=== PATIENT | male | born 1985 | race Caucasian/White ===

== ENCOUNTER 2019-11-18 16:54 | Emergency (ER) | payer SELFPAY ==
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
[2019-11-18] MEDS ORDERED: TETANUS & DIPHTHERIA TOX,ADULT 0.5 ML VIAL ONE (17:28)
[2019-11-18] MEDS ORDERED: HYDROMORPHONE HCL 1 MG/ML INJ ONE (17:28)
[2019-11-18 18:17] VITALS: BP 129/83; TEMP 98.2; O2SAT 98
--- OUTSIDE RECORDS SUMMARY | 2019-11-19 05:23 | XMS REPORT | Continuity of Care Document ---
:1985 Author Organization [facility] t Address [address] [place] [address] Care Team Providers Name Role Phone Prudencio MCKEON Attending Clinician Problems This patient has no known problems. Allergies, Adverse Reactions, Alerts This patient has no known allergies or adverse reactions. Medications This patient has no known medications. Procedures This patient has no known procedures. Encounters Start End Encounter Admission Attending Care Care Encounter Source Date/Time Date/Time Type Type Clinicians Facility Department ID 2019-07-22 2019-07-22 Emergency Prudencio [facility] [id number] 07:50:48 11:35:00 Samuel Prince [id number] [place] [id number] [place] [phone] Results This patient has no known results.
== END 2019-11-18 17:33 | disposition home or self-care (01) ==
LOC: ER 16:54
DX: T23.261A Burn of second degree of back of right hand, initial encounter (principal); T31.0 Burns involving less than 10% of body surface; X13.1XXA Other contact with steam and other hot vapors, initial encounter; Y93.9 Activity, unspecified; Y92.009 Unspecified place in unspecified non-institutional (private) residence as the place of occurrence of the external cause; Z23 Encounter for immunization; F17.210 Nicotine dependence, cigarettes, uncomplicated
CPT/HCPCS: 90471; 90714; 96372; 99282; J1170

== ENCOUNTER 2020-03-21 04:58 | Emergency (ER) | payer SELFPAY ==
--- NOTE | 2020-03-21 05:28 | ER ---
Nurse's Notes [facility] Name: Ezequiel Combs Age: 34 yrs Sex: Male : 1985 Arrival Date: 03/21/2020 Time: 04:59 Bed 7 Private MD: Diagnosis: Allergy, unspecified Presentation: 03/21 05:11 Chief complaint: Patient states: RASH STARTED TO SHOW FRIDAY. AND MY LIPS WERE KIND OF rv SENSITIVE, TODAY I WOKE UP WITH HIVES ON MY LIPS AND IT JIMÉNEZ. Coronavirus screen: Client denies travel out of the [place] in the last 14 days. Ebola Screen: No symptoms or risks identified at this time. Onset: The symptoms/episode began/occurred today. Anaphylaxis evaluation, no signs or symptoms of anaphylaxis were noted. Initial Sepsis Screen: Does the patient meet any 2 criteria? No. Patient's initial sepsis screen is negative. Does the patient have a suspected source of infection? No. Patient's initial sepsis screen is negative. Risk Assessment: Do you want to hurt yourself or someone else? Patient reports no desire to harm self or others. 05:11 Method Of Arrival: Ambulatory 05:11 Acuity: EVON 4 rv 05:11 Onset of symptoms was March 21, 2020. rv Triage Assessment: 05:13 General: Appears comfortable, Behavior is calm, cooperative. Pain: Complains of pain in rv mouth Quality of pain is described as burning. EENT: No signs and/or symptoms were reported regarding the EENT system. Neuro: Level of Consciousness is awake, alert, obeys commands, Oriented to person, place, time, situation. Cardiovascular: Patient's skin is warm and dry. Respiratory: Airway is patent Respiratory effort is even, unlabored. Derm: Rash noted that is on back of neck and mouth. Historical: - Allergies: 05:13 No Known Allergies; rv - PMHx: 05:13 None; rv - PSHx: 05:13 None; rv - Immunization history:: Adult Immunizations up to date. - Social history:: Smoking status: Patient reports the use of cigarette tobacco products, smokes one-half pack cigarettes per day. - Family history:: not pertinent. Screenin:14 Abuse screen: Denies threats or abuse. Denies injuries from another. Nutritional rv screening: No deficits noted. Tuberculosis screening: No symptoms or risk factors identified. Fall Risk None identified. Assessment: 05:35 Respiratory: Airway is patent Breath sounds are clear bilaterally. rv Vital Signs: 05:11 BP 141 / 88; Pulse 80; Resp 17; Temp 98.6; Pulse Ox 100% ; Weight 92.99 kg; Height 5 rv ft. 10 in. (177.80 cm); 05:11 Body Mass Index 29.41 (92.99 kg, 177.80 cm) rv ED Course: 04:59 Patient arrived in ED. cf2 05:11 Mohsen Jones, RN is Primary Nurse. rv 05:12 Triage completed. rv 05:13 Arm band placed on right wrist. Patient placed in the treatment room, on a stretcher, rv Patient notified of wait time. 05:14 Patient has correct armband on for positive identification. Pulse ox on. NIBP on. rv 05:14 No provider procedures requiring assistance completed. Patient did not have IV access rv during this emergency room visit. 05:17 Riya Leach MD is Attending Physician. ma2 Administered Medications: 05:34 Drug: Pepcid 20 mg Route: PO; rv 05:34 Follow up: Response: Medication administered at discharge. rv 05:34 Drug: Benadryl 50 mg Route: IM; Site: right deltoid; rv 05:34 Follow up: Response: Medication administered at discharge. rv 05:34 Drug: MethylPREDNISolone Sodium Succinate 125 mg Route: IM; Site: left deltoid; rv 05:34 Follow up: Response: Medication administered at discharge. rv Outcome: 05:28 Discharge ordered by . ma2 05:35 Discharged to home ambulatory. rv 05:35 Condition: good 05:35 Discharge instructions given to patient, Instructed on discharge instructions, follow up and referral plans. medication usage, Demonstrated understanding of instructions, follow-up care, medications, Prescriptions given X 3. 05:35 Patient left the ED. rv Signatures: Riya Leach MD MD ma2 Mohsen Jones, WOO RN rv Dalton Mustafa cf2
--- NOTE | 2020-03-21 05:28 | EDPHYS ---
Physician Documentation [facility] Name: Ezequiel Combs Age: 34 yrs Sex: Male : 1985 Arrival Date: 03/21/2020 Time: 04:59 Bed 7 Private MD: ED Physician Riya Leach HPI: 03/21 05:26 This 34 yrs old Male presents to ER via Ambulatory with complaints of Hives. ma2 05:26 Onset: The symptoms/episode began/occurred gradually, 3 day(s) ago. Severity of ma2 symptoms: At their worst the symptoms were very mild in the emergency department the symptoms are unchanged. The patient has not experienced similar symptoms in the past. Historical: - Allergies: 05:13 No Known Allergies; rv - PMHx: 05:13 None; rv - PSHx: 05:13 None; rv - Immunization history:: Adult Immunizations up to date. - Social history:: Smoking status: Patient reports the use of cigarette tobacco products, smokes one-half pack cigarettes per day. - Family history:: not pertinent. ROS: 05:26 Constitutional: Negative for fever, chills, and weight loss. ma2 05:26 All other systems are negative. Exam: 05:26 Constitutional: This is a well developed, well nourished patient who is awake, alert, ma2 and in no acute distress. ENT: Nares patent. No nasal discharge, no septal abnormalities noted. Tympanic membranes are normal and external auditory canals are clear. Oropharynx with no redness, swelling, or masses, exudates, or evidence of obstruction, uvula midline. Mucous membranes moist. Neck: Trachea midline, no thyromegaly or masses palpated, and no cervical lymphadenopathy. Supple, full range of motion without nuchal rigidity, or vertebral point tenderness. No Meningismus. Chest/axilla: Normal chest wall appearance and motion. Nontender with no deformity. No lesions are appreciated. Cardiovascular: Regular rate and rhythm with a normal S1 and S2. No gallops, murmurs, or rubs. Normal PMI, no JVD. No pulse deficits. Respiratory: Lungs have equal breath sounds bilaterally, clear to auscultation and percussion. No rales, rhonchi or wheezes noted. No increased work of breathing, no retractions or nasal flaring. Abdomen/GI: Soft, non-tender, with normal bowel sounds. No distension or tympany. No guarding or rebound. No evidence of tenderness throughout. Skin: diffuse hives, otherwise Warm, dry with normal turgor. Normal color with no rashes, no lesions, and no evidence of cellulitis. MS/ Extremity: Pulses equal, no cyanosis. Neurovascular intact. Full, normal range of motion. Neuro: Awake and alert, GCS 15, oriented to person, place, time, and situation. Cranial nerves II-XII grossly intact. Motor strength 5/5 in all extremities. Sensory grossly intact. Cerebellar exam normal. Normal gait. Vital Signs: 05:11 BP 141 / 88; Pulse 80; Resp 17; Temp 98.6; Pulse Ox 100% ; Weight 92.99 kg; Height 5 rv ft. 10 in. (177.80 cm); 05:11 Body Mass Index 29.41 (92.99 kg, 177.80 cm) rv MDM: 05:17 Patient medically screened. ma2 05:26 Differential Diagnosis allergic reactions, vs urticaria vs viral illness. Data ma2 reviewed: vital signs, nurses notes. Counseling: I had a detailed discussion with the patient and/or guardian regarding: the historical points, exam findings, and any diagnostic results supporting the discharge/admit diagnosis, the presence of at least one elevated blood pressure reading (>120/80) during this emergency department visit, the need for outpatient follow up. Response to treatment: the patient's symptoms have markedly improved after treatment. Administered Medications: 05:34 Drug: Pepcid 20 mg Route: PO; rv 05:34 Follow up: Response: Medication administered at discharge. rv 05:34 Drug: Benadryl 50 mg Route: IM; Site: right deltoid; rv 05:34 Follow up: Response: Medication administered at discharge. rv 05:34 Drug: MethylPREDNISolone Sodium Succinate 125 mg Route: IM; Site: left deltoid; rv 05:34 Follow up: Response: Medication administered at discharge. rv Disposition: 03/21/20 05:28 Discharged to Home. Impression: Allergy, unspecified. - Condition is Stable. - Discharge Instructions: Allergy Skin Testing. - Prescriptions for Benadryl 25 mg Oral Capsule - take 1 capsule by ORAL route every 6 hours As needed; 30 tablet. Medrol (Preet) 4 mg Oral Tablets, Dose Pack - take 1 tablet by ORAL route as directed - follow package instructions; 1 packet. Pepcid 20 mg Oral Tablet - take 1 tablet by ORAL route once daily for 10 days; 10 tablet. - Medication Reconciliation Form, Thank You Letter, Antibiotic Education, Prescription Opioid Use form. - Follow up: Private Physician; When: Tomorrow; Reason: If symptoms return, Continuance of care. Signatures: Riya Leach MD MD ma2 Mohsen Jones RN RN rv Corrections: (The following items were deleted from the chart) 05:35 05:28 03/21/2020 05:28 Discharged to Home. Impression: Allergy, unspecified. Condition rv is Stable. Forms are Medication Reconciliation Form, Thank You Letter, Antibiotic Education, Prescription Opioid Use. Follow up: Private Physician; When: Tomorrow; Reason: If symptoms return, Continuance of care. ju
[2020-03-21 05:40] VITALS: BP 141/88; TEMP 98.6; O2SAT 100
[2020-03-21] MEDS ORDERED: FAMOTIDINE 20 MG TAB ONE (05:44)
[2020-03-21] MEDS ORDERED: METHYLPREDNISOLONE 125 MG INJ ONE (05:44)
[2020-03-21] MEDS ORDERED: DIPHENHYDRAMINE 50 MG/ML VIAL ONE (05:44)
--- OUTSIDE RECORDS SUMMARY | 2020-03-22 02:44 | XMS REPORT | Continuity of Care Document ---
:[address] [facility] t Address [address] [place] [address] Care Team Providers Name Role Phone Prudencio [...] Facility Department ID 2019-07-22 2019-07-22 Emergency Prudencio [facility] [id number] 07:50:48 11:35:00 Samuel Prince [id number] [place] [id number] [place] [phone] Results This patient has no known results.
== END 2020-03-21 05:35 | disposition home or self-care (01) ==
LOC: ER 04:58
DX: L50.9 Urticaria, unspecified (principal); F17.210 Nicotine dependence, cigarettes, uncomplicated
CPT/HCPCS: 96372; 99283; J1200; J2930

== ENCOUNTER → 2023-02-09 | Emergency (ER) | payer SELFPAY ==
--- OUTSIDE RECORDS SUMMARY | 2023-02-09 00:41 | XMS REPORT | Continuity of Care Document ---
Author Name Unknown Address [address] [facility] [address] [place] [address] [facility] Address [address] [facility] [address] [place] [address] Care Team Providers Care Mine Engineer Name Role Phone PCP, PATIENT DOES NOT HAVE A Primary Care Physic harry Unavailable Samuel Coelho MD Attending Clinician SAMUEL COELHO Attending Clinician Unavailable SAMUEL COELHO Admitting Clinician Unavailable Payers Payer Name Policy Type Policy Number Effective Date Expirati on Date Source Allergies, Adverse Reactions, Alerts Allergy Name Allergy Type Status Severity Reaction(s) Onset Date Inactive Date Treating Clinician Comments Source NO KNOWN ALLERGIE S Drug Class Active [facility] Social History Social Habit Start Date Stop Date Quantity Comments Source Sex Assigned At [facility] Smoking Status Start Date Stop Date Source Unknown if ever smoked [facility] Medications Ordered Medication Name Filled Medication Name Start Date Stop Date Current Medication? Ordering Clinician Indication Dosage Frequency Signature (SIG) Comments Components Source iohexol (OMNIPAQUE 350 BULK-150 mL) injection 120 mL 07-21 15:18: 00 07-21 15:17 :00 No 120mL 120 mL, Intravenou s, ONCE, 1 dose, Olivia 07/22/19 at 1030, Routine [facility] furosemide (LASIX) 20 mg tablet 07-21 00:00: 00 Yes [id number] 20mg Take 1 tablet by mouth daily. [facility] ondansetron 4 mg disintegrat ing tablet 07-21 00:00: 00 Yes [id number] 4mg Take 1 tablet by mouth every 4 (four) hours as needed for Nausea and Vomiting (N/V). [facility] pantoprazol e 40 mg EC tablet 07-21 00:00: 00 Yes [id number] 40mg Take 1 tablet by mouth daily. [facility] doxycycline hyclate 100 mg capsule 07-21 00:00: 00 08-01 04:59 :00 No [id number] 100mg Take 1 capsule by mouth 2 (two) times daily for 10 days. [facility] Vital Signs Vital Name Observation Time Observation Value Comments S ource Systolic blood pressure 2019-07-22 16:00:00 133 mm[Hg] [facility] Diastolic blood pressure 2019-07-22 16:00:00 82 mm[Hg] [facility] Heart rate 2019-07-22 16:00:00 70 /min [facility] Respiratory rate 2019-07-22 16:00:00 21 /min [facility] Oxygen saturation in Arterial blood by Pulse oximetry 2019-07-22 16:00:00 93 /min [facility] Body temperature 2019-07-22 14:04:00 37.61 May [facility] Body height 2019-07-22 12:48:00 180.3 cm [facility] Body weight 2019-07-22 12:48:00 102.74 kg [facility] BMI 2019-07-22 12:48:00 31.59 kg/m2 [facility] Systolic blood pressure 2019-07-22 16:00:00 133 mm[Hg] [facility] Diastolic blood pressure 2019-07-22 16:00:00 82 mm[Hg] [facility] Heart rate 2019-07-22 16:00:00 70 /min [facility] Respiratory rate 2019-07-22 16:00:00 21 /min [facility] Oxygen saturation in Arterial blood by Pulse oximetry 2019-07-22 16:00:00 93 /min [facility] Body temperature 2019-07-22 14:04:00 37.61 May [facility] Body height 2019-07-22 12:48:00 180.3 cm [facility] Body weight 2019-07-22 12:48:00 102.74 kg [facility] BMI 2019-07-22 12:48:00 31.59 kg/m2 [facility] Procedures Procedure Date / Time Performed Performing Clinician Source CT ABDOMEN PELVIS W CONTRAST 2019-07-22 15:25:47 Samuel Coelho [facility] XR ABDOMEN ACUTE SERIES 2019-07-22 13:53:43 Do juan m Coelho [facility] LIPASE 2019-07-22 13:43:00 Samuel Coelho [facility] TROPONIN I 2019-07-22 13:43:00 Samuel Coelho [facility] FREE T4 2019-07-22 13:43:00 Samuel Coelho [facility] THYROID STIMULATING HORMONE 2019-07-22 13:43:00 Samuel Coelho [facility] HEPATIC FUNCTION PANEL (22527) (ALB,T.PRO,BILI T,BU/BC,ALT,AST,ALK PHOS) 2019-07-22 13:43:00 Samuel Coelho [facility] BASIC METABOLIC PANEL (NA, K, CL, CO2, GLUCOSE, BUN, CREATININE, CA) 2019-07-22 13:43:00 Samuel Coelho [facility] CBC WITH DIFFERENTIAL 2019-07-22 13:43:00 Abel Coelho [facility] PROTHROMBIN TIME / INR 2019-07-22 13:43:00 Duong Coelho [facility] ACTIVATED PARTIAL THRMPLAS ARINA 2019-07-22 13:43:00 Samuel Coelho [facility] N-TERMINAL PRO-BNP 2019-07-22 13:43:00 Samuel Coelho [facility] FREE T3 2019-07-22 13:43:00 Samuel Coelho [facility] EKG-12 LEAD 2019-07-22 13:07:09 Samuel Coelho [facility] NOTICE OF PRIVACY PRACTICES 2019-07-22 12:40:41 Doctor Unassigned, [place] [facility] Encounters Start Date/Time End Date/Time Encounter Type Admission Type Attending Clinicians Care Facility Care Department Encounter ID Source 2019-07-22 07:50:48 2019-07-22 11:35:00 Emergency Samuel Coehlo [facility] [id number] [facility] 2019-07-22 07:50:48 2019-07-22 11:35:00 Emergency X SAMUEL COELHO [facility] ERT [id number] [facility] 2019-07-22 07:50:48 2019-07-22 11:35:00 Emergency Samuel Coelho [facility] [id number] Results Test Description Test Time Test Comments Results Result Comments Source CT ABDOMEN PELVIS W CONTRAST 2019-07 15:48:[address] Abdomen and Pelvis with intravenous contrast. CLINICAL HISTORY: Neoplasm, colorectal/gastric. DOSE: Up-to-date CT equipment and radiation dose reduction techniques wereemployed. CTDIvol: 9.68 mGy. DLP: 520 mGy-cm. TECHNIQUE : Contiguous axial imaging from the level of the lung basesthrough the pubic symphysis were performed after the uncomplicatedadministration of Omnipaque contrast material. Coronal and sagittalreconstructions were obtained. Auto mA and/or iterative reconstruction wereused to reduce radiation dose. FINDINGS: ? Lower lungs: Clear. No pleural effusion or pericardial effusion. Shortsliding hiatal hernia noted. Adjacent to the right dorsolateral surface ofthe lower esophagus, 9 mm lymph node is present. Liver, Gallbladder and Spleen: Liver is enlarged, 18.8 cm in length. Spleenmeasures approximately 11 x 5.7 cm. No enhancing lesions visualized in theliver or in the spleen. No calcified gallstones or any evidence of acutecholecystitis. Biliary ducts and the pancreatic duct appear of normal size. Peritoneum: ?No free air or free fluid. No lymphadenopathy. Pancreas and Adrenals: ?Unremarkable pancreas and adrenal glands. Kidneys and Ureters: ?No visible calculi in the renal collecting systems. No hydroureter or hydronephrosis. Vessels: Retroperitoneum: No abnormal fluid or lymphadenopathy. Bowel: No acute findings. Constipation noted with retained fecal materialthroughout large bowel. Small bowel gas pattern is unremarkable. Normalappendix is visualized. Bladder and Reproductive Organs: No gross pathology in poorly distendedunopacified urinary bladder. Thickened bladder lezama could be due toincomplete luminal distention. Bones: Unremarkable. Soft tissues: Less than 2 x 1 cm sized fat-containing umbilical hernia.Small indirect type bilateral inguinal hernia, slightly larger on the leftside. CONCLUSION:1. No acute intra-abdominal or pelvic pathology detected.2. Hepatomegaly. [facility], Radiant Results Inft User - 07/22/2019 10:49 AM CDTCT Abdomen and Pelvis with intravenous contrast.CLINICAL HISTORY: Neoplasm, colorectal/gastric.DOSE: Up-to-date CT equipment and radiation dose reduction techniques wereemployed. CTDIvol: 9.68 mGy. DLP: 520 mGy-cm.TECHNIQUE : Contiguous axial imaging from the level of the lung basesthrough the pubic symphysis were performed after the uncomplicatedadministration of Omnipaque contrast material. Coronal and sagittalreconstructions were obtained. Auto mA and/or iterative reconstruction wereused to reduce radiation dose.FINDINGS: Lower lungs: Clear. No pleural effusion or pericardial effusion. Shortsliding hiatal hernia noted. Adjacent to the right dorsolateral surface ofthe lower esophagus, 9 mm lymph node is present.Liver, Gallbladder and Spleen: Liver is enlarged, 18.8 cm in length. Spleenmeasures approximately 11 x 5.7 cm. No enhancing lesions visualized in theliver or in the spleen. No calcified gallstones or any evidence of acutecholecystitis. Biliary ducts and the pancreatic duct appear of normal size.Peritoneum: No free air or free fluid. No lymphadenopathy.Pancreas and Adrenals: Unremarkable pancreas and adrenal glands.Kidneys and Ureters: No visible calculi in the renal collecting systems. No hydroureter or hydronephrosis. Vessels: Retroperitoneum: No abnormal fluid or lymphadenopathy.Bowel: No acute findings. Constipation noted with retained fecal materialthroughout large bowel. Small bowel gas pattern is unremarkable. Normalappendix is visualized.Bladder and Reproductive Organs: No gross pathology in poorly distendedunopacified urinary bladder. Thickened bladder lezama could be due toincomplete luminal distention.Bones: Unremarkable.Soft tissues: Less than 2 x 1 cm sized fat-containing umbilical hernia.Small indirect type bilateral inguinal hernia, slightly larger on the leftside.CONCLUSION:1. No acute intra-abdominal or pelvic pathology detected.2. Hepatomegaly. [facility] [id number] 14:54:00* Test Item Value Reference Range Interpretation Comme nts FREE T4 (test code = 8132449571) 1.10 ng/dL 0.78-2.2 Lab Interpretation (test cod e = 49010-7) Normal [facility] [id number] 14:53:00* Test Item Value Reference Range Interpretation Comme nts FREE T3 (test code = 3545007337) 5.64 pg/mL 2.77-5.27 H Lab Interpretation (test cod e = 52729-1) Abnormal [facility] America[facility]roponin [id number] 14:48:00* Test Item Value Reference Range Interpretation Comme nts TROPONIN I (test code = 0704822185) <0.012 See_Comment [Automated message] The system which generated this result transmitted reference range: <=0.034 ng/mL. The reference range was not used to interpret this result as normal/abnormal. ALYSSA (test code = ALYSSA) Equal or Less than 0.034 ng/ml---Normal ?Note: Cardiac troponin begins to rise 3-4 hours after the onset of ischemia. Repeat in 4-6 hours if the sample was drawn within 3-4 hours of the onset of the symptom and found normal. Between 0.035 and 0.120 ng/mL--- Borderline. Questionable myocardial injury or necrosis ? ?Note: Serial measurement may be necessary to confirm or exclude the diagnosis of myocardial injury or necrosis; Clinical correlation (symptoms, EKGs, imaging studies, and others) required; Repeat in 4-6 hours if clinically indicated. ? Equal or Higher than 0.121 ng/mL---Abnormal. Myocardial Injury or Necrosis Likely ? Biotin has been reported to cause a negative bias, interpret results relative to patient's use of biotin. ? Lab Interpretation (test code = 18296-7) Normal [facility] AmericaN-TERMINAL [id number] 14:45:00* Test Item Value Reference Range Interpretation Comme [facility] NT-proBNP (test code = 4206138256) 66 pg/mL See_Comment [Automated message] The system which generated this result transmitted reference range: <=125. The reference range was not used to interpret this result as normal/abnormal. ALYSSA (test code = ALYSSA) Biotin has been reported to cause a negative bias, interpret results relative to patient's use of biotin. Lab Interpretation (test code = 04757-2) Normal [facility] [id number] 14:42:00* Test Item Value Reference Range Interpretation Comme [facility] APTT Patient (test code = 3173-2) See_Comment [Automated message] The system which generated this result transmitted reference range: 23 - 38 Seconds. The reference range was not used to interpret this result as normal/abnormal. ALYSSA (test code = ALYSSA) The [facility] patient population mean normal value for aPTT is 30 seconds. Lab Interpretation (test code = 18156-9) Normal [facility] AmericaProthrombin Time (PT) / [id number] 14:40:00 * Test Item Value Reference Range Interpretation Comme [facility] PROTIME PATIENT (test code = 5964-2) See_Comment [Automated messa ge] The system which generated this result transmitted reference range: 12.0 - 14.7 Seconds. The reference range was not used to interpret this result as normal/abnormal. INR (test code = 6301-6) Normal INR <1.1; Warfarin Therapeutic range 2.0 to 3.0 or 2.5 to 3.5, depending upon the indications. Lab Interpretation (test code = 26740-9) Normal [facility] AmericaBasi Metabolic Panel (NA, K, CL, CO2, GLUCOSE, BUN, CREATININE, CA)2019-07-22 14:36:00* Test Item Value Reference Range Interpretation Comme [facility] NA (test code = 9149676198) 137 mmol/L 135-145 K (test code = 6326783550) 4.2 mmol/L 3.5-5 CL (test code = 1752487615) 100 mmol/L 98-108 CO2 TOTAL (test code = 7470019748) 29 mmol/L 23-31 AGAP (test code = 8233282689) 2-16 BUN (test code = 9048241537) 10 mg/dL 7-23 GLUCOSE (test code = 4146158358) 106 mg/dL 70-110 CREATININE (test code = 3104402644) 0.69 mg/dL 0.6-1.25 CALCIUM (test code = 6467068789) 9.8 mg/dL 8.6-10.6 eGFR Calculation (Non-) (test code = 3327626890) mL/min/1.73m2 eGFR Calculation () (test code = 2950397353) mL/min/1.73m2 ALYSSA (test code = ALYSSA) Association of Glomerular Filtration Rate (GFR) and Staging of Kidney Disease* + -+ + ---+| GFR (mL/min/1.73 m2) ?| With Kidney Damage ?| ?Without Kidney Damage+ -------+ ------+ ---------+| ?>90 ?| ?Stage one ?| ? Normal ?+ --+ -+ ----+| ?60-89 ?| ?Stage two ?| ? Decreased GFR ? + -+ + ---+| ?30-59 ?| ?Stage three ?| ? Stage three ? + -+ + ---+| ?15-29 ?| ?Stage four ? | ? Stage four ?+ --+ -+ ----+| ?<15 (or dialysis) ? ?| ?Stage five ? | ? Stage five ?+ --+ -+ ----+ *Each stage assumes the associated GFR level has been in effect for at least three months. ?Stages 1 to 5, with or without kidney disease, indicate chronic kidney disease. Notes: Determination of stages one and two (with eGFR >59mL/min/1.73 m2) requires estimation of kidney damage for at least three months as defined by structural or functional abnormalities of the kidney, manifested by either:Pathological abnormalities or Markers of kidney damage (including abnormalities in the composition of the blood or urine or abnormalities in imaging tests). [facility] AmericaHepatic Function Panel (ALB, T.PRO, BILI T, BU/BC, ALT, AST, ALK PHOS)2019-07-22 14:36:00* Test Item Value Reference Range Interpretation Comme nts TOTAL BILI (test code = 6599591604) 0.4 mg/dL 0.1-1.1 BILI UNCON (test code = 1166001077) 0.5 mg/dL 0.1-1.1 BILI CONJ (test code = 6464374636) 0.0 mg/dL 0-0.3 T PROTEIN (test code = 8339108006) 7.1 g/dL 6.3-8.2 ALBUMIN (test code = 4160027278) 4.7 g/dL 3.5-5 ALK PHOS (test code = 7527709068) 70 U/L 34-122 ALTv (test code = 1742-6) 54 U/L 5-50 H AST(SGOT) (test code = 8234108841) 23 U/L 13-40 Lab Interpretation (test cod e = 16068-5) Abnormal [facility] AmericaLipase [id number] 14:36:00* Test Item Value Reference Range Interpretation Comme nts LIPASE (test code = 9371846083) 41 U/L 0-220 Lab Interpretation (test cod e = 52211-2) Normal [facility] AmericaCB WITH [id number] 14:05:00* Test Item Value Reference Range Interpretation Comme nts WBC (test code = 6690-2) See_Comment H [Automated [employer]] The system which generated this result transmitted reference range: 4.20 - 10.70 10*3/?L. The reference range was not used to interpret this result as normal/abnormal. RBC (test code = 789-8) See_Comment [Automated [employer]] The system which generated this result transmitted reference range: 4.26 - 5.52 10*6/?L. The reference range was not used to interpret this result as normal/abnormal. HGB (test code = 718-7) 14.4 g/dL 12.2-16.4 HCT (test code = 4544-3) 41.8 % 38.4-49.3 MCV (test code = 787-2) 88.7 fL 81.7-95.6 MCH (test code = 785-6) 30.6 pg 26.1-32.7 MCHC (test code = 786-4) 34.4 g/dL 31.2-35 RDW-SD (test code = 30403-3) 40.3 fL 38.5-51.6 RDW-CV (test code = 788-0) 12.4 % 12.1-15.4 PLT (test code = 777-3) See_Comment [Automated messa ge] The system which generated this result transmitted reference range: 150 - 328 10*3/?L. The reference range was not used to interpret this result as normal/abnormal. MPV (test code = 34341-3) 10.5 fL 9.8-13 NRBC/100 WBC (test code = 7671770135) See_Comment [Automated [employer] ssage] The system which generated this result transmitted reference range: 0.0 - 10.0 /100 WBCs. The reference range was not used to interpret this result as normal/abnormal. NRBC x10^3 (test code = 8367675066) <0.01 See_Comment [Automated [employer] ge] The system which generated this result transmitted reference range: 10*3/?L. The reference range was not used to interpret this result as normal/abnormal. GRAN MAT (NEUT) % (test code = 770-8) 78.9 % IMM GRAN % (test code = 2061711269) 0.20 % LYMPH % (test code = 736-9) 11.5 % MONO % (test code = 5905-5) 7.7 % EOS % (test code = 713-8) 1.3 % BASO % (test code = 706-2) 0.4 % GRAN MAT x10^3(ANC) (test code = 4290817576) 9.48 10*3/uL 1.99-6.95 H IMM GRAN x10^3 (test code = 7030881898) 0.03 10*3/uL 0-0.06 LYMPH x10^3 (test code = 731-0) 1.39 10*3/uL 1.09-3.23 MONO x10^3 (test code = 742-7) 0.93 10*3/uL 0.36-1.02 EOS x10^3 (test code = 711-2) 0.16 10*3/uL 0.06-0.53 BASO x10^3 (test code = 704-7) 0.05 10*3/uL 0.01-0.09 Lab Interpretation (test code = 13507-3) Abnormal [facility] AmericaXR ABDOMEN ACUTE [id number] 13:57:27 HISTORY: Cough and GERD. FINDINGS: ABDOMEN, 2 VIEWS-3 FILMS: AP supine and upright views of the abdomen showedconstipation with moderate amount of retained feces throughout the colon.Upright view shows no free air. No visible gallstones or kidney stones. Noaggressive bone lesions. CHEST, ONE VIEW: Accentuation of bronchovascular markings in lower lungsnoted, likely due to poor inspiratory effort by the patient. No pneumonia.No pneumothorax or pleural effusion. Cardiac size is within upper limits ofnormal. CONCLUSIONS: Constipation. No acute chest or abdominal findings. [facility], Radiant Results Inft User - 07/22/2019 8:58 AM CDTHISTORY: Cough and GERD.FINDINGS:ABDOMEN, 2 VIEWS-3 FILMS: AP supine and upright views of the abdomen showedconstipation with moderate amount of retained feces throughout the colon.Upright view shows no free air. No visible gallstones or kidney stones. Noaggressive bone lesions.CHEST, ONE VIEW: Accentuation of bronchovascular markings in lower lungsnoted, likely due to poor inspiratory effort by the patient. No pneumonia.No pneumothorax or pleural effusion. Cardiac size is within upper limits ofnormal.CONCLUSIONS: Constipation. No acute chest or abdominal findings.[facility]"
--- NOTE | 2023-02-09 00:49 | EDPHYS ---
Physician Documentation [facility] Name: Ezequiel Combs Age: 37 yrs Sex: Male : 1985 Arrival Date: 02/09/2023 Time: 00:38 Bed IW1 Private MD: ED Physician Lion Uriarte HPI: 02/09 00:52 This 37 yrs old Male presents to ER via Ambulatory with complaints of Ear Pain. kb 00:52 Patient is a 37-year-old male with no medical history who presents for left ear pain. kb States it has been clogged with earwax so he has been using hydrogen peroxide, cerumen drops and trying to take the wax out. Now has pain to the ear canal. Denies fever.. Historical: - Allergies: 00:52 No Known Allergies; pf1 - PMHx: 00:52 Anxiety; pf1 00:53 Bipolar disorder; pf1 - PSHx: 00:52 None; pf1 - Immunization history:: Adult Immunizations not up to date, Client reports having NOT received the Covid vaccine. Last tetanus immunization: > 10 years ago Flu vaccine is not up to date. - Social history:: Smoking status: Patient reports the use of cigarette tobacco products, smokes one-half pack cigarettes per day, Patient uses street drugs, marijuana, Patient/guardian denies using alcohol. ROS: 00:51 Constitutional: Negative for fever, chills, and weight loss, kb 00:51 ENT: Positive for ear pain, 00:51 All other systems are negative, Exam: 00:51 Constitutional: This is a well developed, well nourished patient who is awake, alert, kb and in no acute distress. Head/Face: Normocephalic, atraumatic. Cardiovascular: Regular rate Respiratory: Respirations even and unlabored. No increased work of breathing. Talking in full sentences Skin: Warm, dry with normal turgor. Normal color. MS/ Extremity: Pulses equal, no cyanosis. Neurovascular intact. Full, normal range of motion. Neuro: Awake and alert, GCS 15, oriented to person, place, time, and situation. Moves all extremities. Normal gait. 00:51 ENT: External ear(s): are unremarkable, Ear canal(s): cerumen impaction, that is mild, that is moderate, that is hard, occluding the left ear canal, TM's: not visable, because of cerumen, Examination of the other ear shows no obvious abnormality, Vital Signs: 00:49 BP 145 / 83; Pulse 76; Resp 16; Temp 97.7; Pulse Ox 97% on R/A; Weight 102.06 kg; pf1 Height 5 ft. 11 in. ; Pain 6/10; 00:49 Body Mass Index 31.38 (102.06 kg, 180.34 cm) pf1 00:49 Pain Scale: Adult pf1 MDM: 00:45 Patient medically screened. kb 00:52 Differential diagnosis: otitis media, otitis externa, ruptured TM, foreign body, acute kb otalgia, cerumen impaction. Data reviewed: vital signs, nurses notes. Counseling: I had a detailed discussion with the patient and/or guardian regarding the historical points, exam findings, and any diagnostic results supporting the discharge/admit diagnosis, the need for outpatient follow up, an ENT specialist, to return to the emergency department if symptoms worsen or persist or if there are any questions or concerns that arise at home. Administered Medications: No medications were administered Disposition Summary: 02/09/23 00:49 Discharge Ordered Notes: Location: Home kb Condition: Stable kb Diagnosis - Impacted cerumen, left ear kb Followup: kb - With: Emergency Department - When: As needed - Reason: Worsening of condition Followup: kb - With: Private Physician - When: 2 - 3 days - Reason: Recheck today's complaints, Continuance of care, Re-evaluation by your physician Discharge Instructions: - Discharge Summary Sheet kb - Earwax Buildup, Adult kb Forms: - Medication Reconciliation Form kb - Thank You Letter kb - Antibiotic Education kb - Prescription Opioid Use kb - Patient Portal Instructions kb - Leadership Thank You Letter kb Addendum: 02/10/2023 20:14 I was immediately available for consultation during this patient's visit. I did not e c2 personally see the patient or guide the patient's care.. Signatures: Brittney Ibarra, GABYC TERRY-Glenda Cherry RN RN pf1 Lion Uriarte MD MD ec2 Corrections: (The following items were deleted from the chart) 02/09 00:53 00:52 PMHx: None; pf1 pf1
--- NOTE | 2023-02-09 01:02 | ER ---
Nurse's Notes [facility] Name: Ezequiel Combs Age: 37 yrs Sex: Male : 1985 Arrival Date: 02/09/2023 Time: 00:38 Bed IW1 Private MD: Diagnosis: Impacted cerumen, left ear Presentation: 02/09 00:49 Chief complaint: Patient states: left ear pain of 6,onset 1 week. Patient stated tried pf1 to flush ear with hydrogen peroxide and used some ear wax softener tonight. Patient stated it feels muffled and clogged to left ear. Coronavirus screen: Vaccine status: Patient reports being unvaccinated. Client denies travel out of the [place] in the last 14 days. At this time, the client does not indicate any symptoms associated with coronavirus-19. Ebola Screen: Patient negative for fever greater than or equal to 101.5 degrees Fahrenheit, and additional compatible Ebola Virus Disease symptoms. Initial Sepsis Screen: Does the patient meet any 2 criteria? No. Patient's initial sepsis screen is negative. Does the patient have a suspected source of infection? No. Patient's initial sepsis screen is negative. Risk Assessment: Do you want to hurt yourself or someone else? Patient reports no desire to harm self or others. 00:49 Method Of Arrival: Ambulatory pf1 00:49 Acuity: EVON 5 pf1 Historical: - Allergies: 00:52 No Known Allergies; pf1 - PMHx: 00:52 Anxiety; pf1 00:53 Bipolar disorder; pf1 - PSHx: 00:52 None; pf1 - Immunization history:: Adult Immunizations not up to date, Client reports having NOT received the Covid vaccine. Last tetanus immunization: > 10 years ago Flu vaccine is not up to date. - Social history:: Smoking status: Patient reports the use of cigarette tobacco products, smokes one-half pack cigarettes per day, Patient uses street drugs, marijuana, Patient/guardian denies using alcohol. Screenin/30 00:50 [facility] ED Fall Risk Assessment (Adult) History of falling in the last 3 months, pf1 including since admission No falls in past 3 months (0 pts) Confusion or Disorientation No (0 pts) Intoxicated or Sedated No (0 pts) Impaired Gait No (0 pts) Mobility Assist Device Used No (0 pt) Altered Elimination No (0 pt) Score/Fall Risk Level 0 - 2 = Low Risk Oriented to surroundings, Maintained a safe environment, Educated pt \T\ family on fall prevention, incl call for assistance when getting out of bed, Assessed \T\ reinforced patient's understanding of fall precautions, Provided non-skid footwear, Hourly rounding (assess needs \T\ fall precautionary measures) done, Used ambulatory aids as needed (educated on \T\ assisted with), Used gait belt as appropriate. 00:50 Abuse screen: Denies threats or abuse. Nutritional screening: No deficits noted. pf1 Tuberculosis screening: No symptoms or risk factors identified. Assessment: 02/09 00:50 General: Appears in no apparent distress. comfortable, well groomed, well developed, pf1 Behavior is calm, cooperative, appropriate for age, quiet. Neuro: No deficits noted. Level of Consciousness is awake, alert, obeys commands, Oriented to person, place, time, situation. Cardiovascular: No deficits noted. Capillary refill < 3 seconds Patient's skin is warm and dry. Respiratory: No deficits noted. Airway is patent Respiratory effort is even, unlabored, Respiratory pattern is regular, symmetrical. GI: No deficits noted. No signs and/or symptoms were reported involving the gastrointestinal system. : No deficits noted. No signs and/or symptoms were reported regarding the genitourinary system. EENT: Reports pain in left ear. Derm: No deficits noted. No signs and/or symptoms reported regarding the dermatologic system. 00:50 Pain: Complains of pain in left ear Pain currently is 6 out of 10 on a pain scale. pf1 Vital Signs: 00:49 BP 145 / 83; Pulse 76; Resp 16; Temp 97.7; Pulse Ox 97% on R/A; Weight 102.06 kg; pf1 Height 5 ft. 11 in. ; Pain 6/10; 00:49 Body Mass Index 31.38 (102.06 kg, 180.34 cm) pf1 00:49 Pain Scale: Adult pf1 ED Course: 00:42 Patient arrived in ED. ag3 00:44 Lion Uriarte MD is Attending Physician. ec2 00:45 [facility] kb 00:50 Patient has correct armband on for positive identification. pf1 00:50 Arm band placed on right wrist. pf1 00:50 No provider procedures requiring assistance completed. Patient did not have IV access pf1 during this emergency room visit. 00:52 Triage completed. pf1 01:01 Provided Education on: follow up ENT. pf1 Administered Medications: No medications were administered Medication: 01: VIS not applicable for this client. pf1 Outcome: 00:49 Discharge ordered by MD. kb 01:01 Discharged to home ambulatory, pf1 01: Condition: stable 01:01 Discharge instructions given to patient, Instructed on discharge instructions, follow up and referral plans. Demonstrated understanding of instructions, follow-up care, 01:01 Patient left the ED. pf1 Signatures: Brittney Ibarra, TERRY-C [employer]-Joan Pierce ag3 Glenda Arreola RN RN pf1 Lion Uriarte MD MD ec2 Corrections: (The following items were deleted from the chart) 00:53 00:52 PMHx: None; pf1 pf1 07:02/08 00:50 General: Appears in no apparent distress. comfortable, well groomed, well pf1 developed, Behavior is calm, cooperative, appropriate for age, quiet, pf1 02/09 07:02/08 00:50 Pain: Complains of pain in left ear Pain currently is 6 out of 10 on a pain pf1 scale. pf1 02/09 07:02/08 00:50 Neuro: No deficits noted. Level of Consciousness is awake, alert, obeys pf1 commands, Oriented to person, place, time, situation, pf1 02/09 07:02/08 00:50 Cardiovascular: No deficits noted. Capillary refill < 3 seconds Patient's pf1 skin is warm and dry. pf1 02/09 07:02/08 00:50 Respiratory: No deficits noted. Airway is patent Respiratory effort is pf1 even, unlabored, Respiratory pattern is regular, symmetrical, pf1 02/09 07:02/08 00:50 GI: No deficits noted. No signs and/or symptoms were reported involving the pf1 gastrointestinal system. pf1 02/09 07:02/08 00:50 : No deficits noted. No signs and/or symptoms were reported regarding the pf1 genitourinary system. pf1 02/09 07:02/08 00:50 EENT: Reports pain in left ear pf1 pf1 02/09 07:02/08 00:50 Derm: No deficits noted. No signs and/or symptoms reported regarding the pf1 dermatologic system. pf1
[2023-02-09 03:07] VITALS: BP 145/83; TEMP 97.7; O2SAT 97
== END ==
LOC: ER 00:38
DX: H61.22 Impacted cerumen, left ear (principal)
CPT/HCPCS: 99282